=== PATIENT | male | born 1980 | race Caucasian/White ===

== ENCOUNTER 2022-02-17 10:39 | Emergency (ER) | payer OTHER ==
[~2022-02-17] VITALS: Ht 177.8 cm; Wt 90.0 kg
[2022-02-17 11:19] VITALS: BP 115/82
== END 2022-02-17 15:14 | disposition left against medical advice (07) ==
LOC: ER 10:39
DX: Z53.21 Procedure and treatment not carried out due to patient leaving prior to being seen by health care provider (principal)